=== PATIENT | female | born 1955 | race Caucasian/White ===

== ENCOUNTER → 2019-07-17 | Day surgery (SDC) | payer OTHER ==
--- NOTE | 2019-07-17 12:22 | RAD REPORT ---
EXAM DESCRIPTION: US - Breast Core BX w/US Guidance - 07/17/2019 11:09 am CLINICAL HISTORY: ICD R 92.8 COMPARISON: June 2019 ultrasound TECHNIQUE: The risks, benefits alternatives to the procedure were explained to the patient and infor med consent obtained. Skin and subcutaneous tissues anesthetized with lidocaine. Under sonographic guidance, one 14 gauge vacuum assisted core biopsy of the mass within the dilated d ucts within the retroareolar region of the right breast obtained. 2 centimeter core specimen taken. A fter the first biopsy the mass within the duct could not be identified so an additional biopsy was no t obtained. Materials given to pathology. Patient experienced no immediate complication IMPRESSION: Vacuum assisted core biopsy of the mass within the retro region of right breast
== END ==
LOC: DS 10:00
PROVIDERS: ATTEND Nurse Practitioner Family
DX: N63.10 Unspecified lump in the right breast, unspecified quadrant (principal)
CPT/HCPCS: 19083; 88305